=== PATIENT | male | born 1970 | race Caucasian/White ===

== ENCOUNTER → 2017-01-20 | Outpatient (CLI) | payer BC ==
[~2017-01-20] MED LIST: AUGMENTIN 875 M1 TAB PO; CYCLOBENZAPRINE10 MG PO; LORTAB 5/500 501 TAB PO; NOMEDS
--- NOTE | 2017-01-20 12:11 | RADIOLOGY REPORT PS360 ---
EXAM: LUMBAR SPINE 5 VIEWS HISTORY: LOW BACK PAIN ORDERING PHYSICIAN: Kaelyn PEARSON PATIENT AGE: 46 years COMPARISON: None FINDINGS: Normal alignment. No fracture or dislocation. No lytic or blastic change. No significant degenerative change. The disc spaces are preserved. There is mild lumbar curvature convex left which could be due to patient positioning versus mild scoliosis. Mild facet hypertrophic changes are present at the lumbosacral junction. IMPRESSION: Minimal leftward lumbar curvature with mild facet arthritic change at L5-S1
== END ==
LOC: RAD 10:17
DX: M54.5 Low back pain (principal)

== ENCOUNTER 2017-06-14 19:00 | Emergency (ER) | payer BC ==
[~2017-06-14] VITALS: Ht 180.3 cm; Wt 72.6 kg
[2017-06-14] MEDS ORDERED: NOMEDS XX (19:05)
--- NOTE | 2017-06-14 19:06 | Emergency Room Report ---
See Addendum History of Present Illness Time Seen by 1901 Presenting Problem in Triage Pt arrived: Presenting Problem: Onset of symptoms date/time:/ or onset unknown for: Treatment Prior to Arrival: [facility] Provided by: Sepsis Risk Assessment: Temp: B/P: MAP: Pulse: Resp: Recent fever? Clinical Suspician of Infection? Mental Status: Sepsis Risk: Have you (or family members/close friends) recently traveled outside the [place]? If Yes, where/when: Have you had exposure to infectious disease within the past month? TB? Other? Specify: 47 years old white male who came out of rehab at [facility] 2 weeks ago. He was at work when he looked pale and clammy. Ambulance was called and upon arrival his saturation was 67 his breathing was shallow and pinpoint pupil. He was given Narcan with full recovery. He admits to using heroin. He has no complaint in the ER. Source patient, RN notes reviewed, EMS ALLERGIES Coded Allergies: No Known Allergies (06/14/17) Home Medications Reported Medications No Home Medications (NO HOME MEDICATIONS) 1 EACH XX ONCE History Medical History General CAD? No Angina: No UT: No Hypertension? No Hyperlipidemia? No CHF? No DVT? No PE? No COPD? No Asthma? No Anemia? No GERD? No Gastric ulcers? No GI Bleed? No Hernia? No Thyroid Problems? No Hypothyroidism? No CVA? No Seizures? No Diabetes? No Renal Insuffiency? No End Stage Renal Disease? No UTI? No Stones? No BPH? No GB Disease: No Nephritic Syndrome? No Asplenia? No Hepatitis? No Sickle Cell Disease? No Arthritis? No Migraines? No Cataracts? No Glaucoma? No MRSA? No HIV? No TB? No Anxiety? No Depression? No Cancer? No More? No Immunization Hx DT/Tetanus 03/26/12 Surgical Hx Previous Surgery?Y WISDOM TEETH Social History Alcohol Alcohol: Yes Review of Systems All Other Systems Reviewed and Negative Constitutional see HPI Eyes no symptoms reported ENT no symptoms reported. Respiratory no symptoms reported Cardiovascular no symptoms reported Gastrointestinal no symptoms reported Genitourinary no symptoms reported. Musculoskeletal no symptoms reported Skin no symptoms reported Psychiatric/Neurological no symptoms reported Physical Exam Vital Signs Vital Signs Date Time Temp Pulse Resp B/P Pulse O2 O2 Flow FiO2 Ox Delivery Rate 06/14 1901 97.7 107 18 143/103 98 - WBC >12,000 or <4,000 or 10% bands? 2 or more SIRS Criteria Met? B/P:143/103 MAP:116 Creatinine >2.0? UA output<0.5ml/kg/hr for 2 hrs? Platelet count >100,000? Lactate >2.0mmol/1? INR >1.2 or PTT > than 60 sec? Evidence of Organ Dysfunction? Provider documented clinical suspician of infection? N Sepsis Criteria Count: 1 Sepsis Risk: Low Sepsis Risk General Appearance normal appearance, WD/WN Eye Exam - bilateral eye normal exam, bilateral eye PERRL, bilateral eye EOMI Ear, Nose, Throat hearing grossly normal, normal ENT inspection Neck normal inspection, non-tender, supple, full range of motion Respiratory Status Yes: trachea midline, chest symmetrical, non tender chest. No: respiratory distress. Lung Sounds bilateral: normal breath sounds, lungs clear. Cardiovascular normal exam, regular rate/rhythm, no peripheral edema, no gallop, no JVD, no murmur, no rub, normal peripheral pulses Peripheral Pulses Pulses normal Yes Gastrointestinal normal bowel sounds, normal exam, non tender, soft, no organomegaly Back normal inspection, no CVA tenderness, no vertebral tenderness Extremities non-tender, normal range of motion, normal inspection Neurologic alert, lead pressman II-XII nml as tested, normal exam, oriented x 3 Reflexes Reflexes normal Yes Mental status normal mood/affect Skin intact, normal color, warm/dry Medical Decision Making LABS/Meds/Orders Pt receiving controlled substance in ED? No Results/Orders Laboratory Tests 06/14/171910: Sodium 138, Potassium 4.7, Chloride 103, Carbon Dioxide 31, BUN 13, Creatinine 1.1, Estimated Creat Clear 85, Estimated GFR (MDRD) 72, Glucose 207 H, Calcium 8.4 L, Total Bilirubin 0.3, AST 28, ALT 56, Alkaline Phosphatase 70, Creatine Kinase 278, CK-MB (CK-2) Rel Index 0.5, CK and CKMB Interp 1.5, Troponin I < 0.02, Total Protein 7.5, Albumin 3.6, Globulin 3.9 H, Albumin/Globulin Ratio 0.9 L, WBC 5.0, RBC 4.71, Hgb 13.9 L, Hct 43.1, MCV 91.5, RDW 13.6, Plt Count 267, MPV 6.8 L, Gran % 70.6, Gran # 3.6, Lymphocytes % 24.5, Monocytes % 3.2, Eosinophils % 1.3, Basophils % 0.4, Lymphocytes # 1.2, Monocytes # 0.2, Eosinophils # 0.1, Basophils # 0.0, PUBS MCHC 32.3, MCH 29.5 Current Medication Orders Sig/Meg Start time Last Medication Dose Route Stop Time Status Admin Sodium Chloride 10 ML PRN PRN 06/14 1915 AC IV 06/15 1911 Orders Procedure Date/time Status IV SALINE LOCK 06/14 1911 Active ELECTROCARDIOGRAM REQUEST 06/14 1903 Active CHEST(2 VIEWS-NOT PORTABLE) 06/14 1903 Active CBC WITH AUTO DIFF 06/14 1903 Complete CARDIAC ENZYMES 06/14 1903 Complete CHEM 12 PROFILE 06/14 1903 Complete CM/EKG CM/EKG EKG sinus tachycardia 104/ Per minute baseline artifacts no acute finding XRAY/CT/US XRAY/CT/US XRAY chest XR interpretation by reviewed by me Xray Results normal/NAD Departure Departure Time of Disposition 1906 Disposition DC Home or Self Care(routine) Clinical Impression Primary Impression: Heroin overdose Condition STABLE Referrals Ric LÓPEZ,A.C. (Family) Additional Instructions THE PATIENT REMAINED STABLE, ALERT ORIENTED X 4. I WENT TO DISCHARGE HIM BUT HIS WORK [employer] HAD A REQUEST FOR URINE AND BLOOD WORK DRUG SCREEN, I INFOFORMED HIM THAT THE HOSPITAL DOES NOT DO BLOOD DRUG SCREEN, HE WILL DISCUSS WITH THE SUPERVISOR ENGINE ASSEMBLY. THE PATIETNWAS STABLE, HE WILL SPEND THE NIGHT WITH HIS NEFEW [place] 2 MINUTES AWAY AND WAS ADVISED TO RETURN IF NEEDED, THEY VERBLAIZED UNDERSTANDING. DR. MOORE Discharge Counseling Counseled pt/family regarding diagnosis, test results, medications/RX, home care, follow up needs ED Critical Care Critical Care No If Critical Care minutes are documented, the time involved in the performance of seperately reportable procedures was not counted toward critical care time documented. I directly delivered medical care to this critically ill and/or injured patient. Timely evaluation and treatment was necessary to address the significant organ system(s) dysfunction present in this patient. at 2005
[2017-06-14 19:20] LABS: HEMOGLOBIN 13.9 g/dL (14.1-18.0); LYMPH # 1.2 K/mm3 (0.7-4.5); LYMPH % 24.5 % (10-50)
[2017-06-14 19:46] LABS: BUN 13 mg/dL (7-18)
[2017-06-14 19:51] LABS: GFR (ESTIMATED) 72 ML/MIN (>60)
[2017-06-14 22:06] VITALS: BP 140/92
--- NOTE | 2017-06-15 06:29 | RADIOLOGY REPORT PS360 ---
CHEST(2 VIEWS-NOT PORTABLE) HISTORY: Shortness of air ORDERING PHYSICIAN: Preethi Moore MD PATIENT AGE: 47 years COMPARISON: None available FINDINGS: The cardiomediastinal silhouette and pulmonary vascularity are within normal limits. The lungs are clear without infiltrates, suspicious nodules, or pleural effusions. No acute bony abnormalities. IMPRESSION: Negative chest, no acute finding
== END 2017-06-14 22:18 | disposition home or self-care (01) ==
LOC: ER 19:00
PROVIDERS: Emergency Medicine
DX: T40.1X1A Poisoning by heroin, accidental (unintentional), initial encounter (principal); F11.10 Opioid abuse, uncomplicated; Y92.89 Other specified places as the place of occurrence of the external cause